=== PATIENT | female | born 1985 | race Native Hawaiian/Other Pacific Islander ===

== ENCOUNTER 2019-12-20 07:54 | Day surgery (SDC) | payer OTHER | END 2019-12-20 09:41 | disposition home or self-care (01) | LOC: OR 07:54 | PROC: 3E0T3BZ Introduction of Anesthetic Agent into Peripheral Nerves and Plexi, Percutaneous Approach (ICD-10-PCS; principal; 2019-12-20) | DX: M47.816 Spondylosis without myelopathy or radiculopathy, lumbar region (principal) | CPT/HCPCS: J2001; J2543 ==

== ENCOUNTER 2020-01-03 08:42 | Day surgery (SDC) | payer OTHER ==
[~2020-01-03] VITALS: Ht 165.1 cm; Wt 116.6 kg
[2020-01-03 09:31] LABS: PLATELET COUNT 274 K/uL (152-353)
[2020-01-03 09:42] LABS: POTASSIUM 3.2 mmol/L (3.6-5.2); SODIUM 139 mmol/L (136-145)
== END 2020-01-03 12:25 | disposition home or self-care (01) ==
LOC: OR 08:42
PROVIDERS: Pain Medicine Interventional Pain Medicine
PROC: 3E0T3BZ Introduction of Anesthetic Agent into Peripheral Nerves and Plexi, Percutaneous Approach (ICD-10-PCS; principal; 2020-01-03)
PROC: 3E0T33Z Introduction of Anti-inflammatory into Peripheral Nerves and Plexi, Percutaneous Approach (ICD-10-PCS; 2020-01-03)
DX: M47.816 Spondylosis without myelopathy or radiculopathy, lumbar region (principal)
CPT/HCPCS: 80053; 84702; 85027; J1100; J1170; J2001; J2250; J2405; J2704; J3490

== ENCOUNTER 2020-04-21 14:35 | Emergency (ER) | payer OTHER ==
[~2020-04-21] VITALS: Ht 165.1 cm; Wt 116.6 kg
[2020-04-21 15:21] LABS: PLATELET COUNT 198 K/uL (152-353)
[2020-04-21 15:23] LABS: POTASSIUM 3.5 mmol/L (3.6-5.2)
[2020-04-21 19:47] VITALS: BP 118/84; TEMP 98.8
== END 2020-04-21 19:47 | disposition home or self-care (01) ==
LOC: ED 14:35
PROVIDERS: Emergency Medicine
DX: R10.84 Generalized abdominal pain (principal)
CPT/HCPCS: 36415; 80053; 81000; 81025; 82150; 83690; 85027; 96374; 96375; 96376; 99284; J2175; J2405; Q9963